=== PATIENT | male | born 1970 | race Hispanic/Latino ===

== ENCOUNTER 2024-12-26 12:54 | Emergency (ER) | payer OTHER, SELFPAY ==
[2024-12-26 13:04] VITALS: BP 135/95
--- NOTE | 2024-12-26 14:14 | ED.GENMED ---
History of Present Illness
<Adriel Brink MD, Resident - Last Filed: 12/26/24 14:45>
General
Chief Complaint: Facial Problem
Source: patient
Time Seen by Provider: 12/26/24 13:48
History of Present Illness
History of Present Illness:
Patient is a 54-year-old male with PMH of HTN, HLD, and DM who presents to the [place] ED with right facial paralysis. Patient notes blurred vision in his right eye around 3 PM on Sunday (12/24). Patient subsequently presented to urgent care
that evening, where he was told he had a corneal abrasion and referred to the hospital. On the same evening, patient then presented to [facility] [place], where he was again told he had a corneal abrasion and given ciprofloxacin
eyedrops. On , patient noticed some right-sided facial droop. 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 He was then referred to the hospital to rule out stroke.
Patient had nausea and diarrhea on Sunday and Sunday, which resolved without treatment. Other than right sided facial paralysis, patient denies any other neurologic symptoms. No headache, diplopia, weakness, or numbness. No recent extensive
outdoor activities or known tick bites.
Past History
<Adriel Brink MD, Resident - Last Filed: 12/26/24 14:45>
Past History
ED Past Medical History: HTN, Hypercholesterolemia, NIDDM and Other (Genital herpes)
ED Past Surgical History: Negative Appendectomy, Bowel resection, Brain or Cardiac
Social History
Tobacco: Smoker (Diabetes, hypertension, hyperlipidemia)
Alcohol: Occasional
Drug: None
Living: with family
Family History
Family History: Other
Review of Systems
<dAriel Brink MD, Resident - Last Filed: 12/26/24 14:45>
Review of Systems
Constitutional: Denies fever, fatigue or chills
Respiratory: Denies trouble breathing
Cardiac: Denies chest pain
ABD/GI: Reports nausea and diarrhea; Denies abdominal pain or vomiting
Neurological: Reports other (R facial droop; no extremity weakness or numbness); Denies headache
Phy Exam
<Adriel Brink MD, Resident - Last Filed: 12/26/24 14:45>
Physical Exam
Physical Exam:
General: NAD. Conversant.
Neuro: R facial droop, with forehead involvement. No tongue deviation. Patient unable to fully close R eyelid, both at rest and against resistance. No extremity weakness or numbness. EOMI. Visual barry intact. No dysmetria. No
dysdiadochokinesia.
HEENT: No erythema or lesions in EACs. No facial rash.
Psych: Calm.
Scores
<Francesco Bedoya, DO - Last Filed: 12/26/24 14:36>
NIH Stroke Score
Level of Consciousness: 0 - Alert
LOC Questions: 0-Answers both correctly
LOC Commands: 0-Performs both correctly
Best Horizontal Gaze: 0-Normal
Visual Barry: 0=Normal, no visual loss
Facial Palsy: 2=Partial paralysis
Motor - Right Arm: 0=No drift 10 seconds
Motor - Left Arm: 0=No drift 10 seconds
Motor - Right Le-No drift 5 seconds
Motor - Left Le-No drift 5 seconds
Limb Ataxia: 0-Absent
Sensation: 0-Normal
Best Language: 0-No aphasia
Dysarthria: 0-Normal
Extinction and Inattention: 0-No abnormality
NIH Total Score:: 2
Course
<Adriel Brink MD, Resident - Last Filed: 12/26/24 14:45>
Vital Signs
Initial and Last Documented VS:
Initial Vital Signs
Temp Pulse Resp BP Pulse Ox
98.1 F 84 18 135/95 98
12/26/24 13:04 12/26/24 13:04 12/26/24 13:04 12/26/24 13:04 12/26/24 13:04
Last Documented Vital Signs
Temp Pulse Resp BP Pulse Ox
98.1 F 84 18 135/95 98
12/26/24 13:04 12/26/24 13:04 12/26/24 13:04 12/26/24 13:04 12/26/24 14:19
<Francesco Bedoya, DO - Last Filed: 12/26/24 14:36>
Vital Signs
Initial and Last Documented VS:
Initial Vital Signs
Temp Pulse Resp BP Pulse Ox
98.1 F 84 18 135/95 98
12/26/24 13:04 12/26/24 13:04 12/26/24 13:04 12/26/24 13:04 12/26/24 13:04
Last Documented Vital Signs
Temp Pulse Resp BP Pulse Ox
98.1 F 84 18 135/95 98
12/26/24 13:04 12/26/24 13:04 12/26/24 13:04 12/26/24 13:04 12/26/24 14:19
<Adriel Brink MD, Resident - Last Filed: 12/26/24 14:45>
MDM/Problems Addressed
Differential Diagnosis Includes:
Bartlett's palsy
Stroke/TIA
[place] Delacruz syndrome
Lyme disease
MDM/Problems Addressed:
Assessment: Patient is a 54-year-old male with PMH of HTN, DM, and HLD who presents to the [place] ED with 2 days of right eye blurriness and 1 day of R facial droop with involvement of the forehead and no other neurologic deficits. Suspect
Bartlett's palsy.
Plan:
#R facial paralysis
Plan to discharge on the following interventions:
- Prednisone 60 mg daily x 7 days
- Valacyclovir 1000 mg 3 times daily x 7 days
- Patient counseled to tape his eye shut at night to prevent corneal damage
No imaging or labs warranted at this time
<Adriel Brink MD, Resident - Last Filed: 12/26/24 14:45>
*Pulse Oximetry
SaO2: 98
Oxygen Mode of Delivery: Room air
Patient hypoxic: no
*Critical Care Note
Total Time (30-74mins, 75-104mins- exclusive of procedures): Not Applicable
ED Attending Note
<Adriel Brink MD, Resident - Last Filed: 12/26/24 14:45>
-
Portions of this chart may have been created with voice recognition software.� Occasional wrong word or��sound alike� substitutions may have occurred due to the inherent limitations of voice recognition software.
<Francesco Bedoya, DO - Last Filed: 12/26/24 14:36>
ED Attending Note
Patient seen and examined by attending physician: Yes
I performed the substantive portion of visit, reviewed & personally made and approve the management plan that is documented in note by myself or KEVIN.: Yes
ED Attending Note:
I have seen and evaluated the patient with a [id number] encounter. I have spoken to the resident and involved in the medical history, the physical exam, medical decision making.
Evaluation and management service: agree unless noted differently below.
Results interpretation: agree unless noted differently below.
Focused HPI: 54-year-old male presenting for evaluation of approximately 48 hours of right facial weakness. He was initially being worked up for corneal abrasion and his eye doctor sent him to emergency department for possible stroke versus Bartlett's
palsy. Patient did have recent viral illness last week. He denies any other weakness or numbness
Physical exam: Paralysis noted to right side of face which does involve the forehead. Slow blink response to the right eye. No other neurodeficits noted
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 Will start steroids and valacyclovir. Patient educated on taping his eye shut at nighttime
Discharge Plan
Departure
Patient Disposition: Home (Routine Discharge)
Date of Disposition: 12/26/24
Time of Disposition: 14:37
Patient with high blood pressure during this ER visit?: Yes
Condition: Good
Covid-19: Not Applicable
Discharge Problem:
Bartlett's palsy
Instructions: Bartlett's Palsy (DC), BLOOD PRESSURE
Prescriptions:
New
prednisone 20 mg tablet
60 mg PO DAILY 7 Days Qty: 21 0RF
valacyclovir [Valtrex] 1 gram tablet
1,000 mg PO TID 7 Days Qty: 21 0RF
No Action
metformin 500 MG tablet
500 mg PO BID
pravastatin 40 MG tablet
40 mg PO DAILY
glipizide [Glucotrol XL] 10 MG tablet extended release 24hr
10 mg PO DAILY
lisinopril-hydrochlorothiazide 1 EACH tablet
1 ea PO DAILY
hydrocodone-acetaminophen [Vicodin] 1 EACH tablet
1 ea PO Q4HPRN PRN (Reason: pain) Qty: 20 0RF
Activity Restrictions/Additional Instructions:
Complete full regimens of the following medications:
- Prednisone 60 mg by mouth daily
- Valacyclovir 1000 mg by mouth 3 times daily
Tape affected eye show at night to prevent abrasions
Wear an eye patch to protect eye from abrasions while paralysis persists
Follow-up with PCP in the outpatient setting
Return to ED if you develop weakness, numbness, vision loss, or any other symptoms worrisome to you
Discharge Date and Time
Print Language: AMHARIC
== END 2024-12-26 15:03 | disposition home or self-care (01) ==
LOC: EMR 12:54
PROVIDERS: EMERGENCY PHYSICIAN Student in an Organized Health Care Education/Training Program; FAMILY PHYSICIAN Internal Medicine
DX: G51.0 Bell's palsy (principal); E11.9 Type 2 diabetes mellitus without complications; I10 Essential (primary) hypertension; E78.00 Pure hypercholesterolemia, unspecified; A60.00 Herpesviral infection of urogenital system, unspecified; F17.200 Nicotine dependence, unspecified, uncomplicated; Z79.84 Long term (current) use of oral hypoglycemic drugs
CPT/HCPCS: 99282